=== PATIENT | male | born 1990 | race American Indian/Alaskan Native ===

== ENCOUNTER 2017-11-16 07:24 | Emergency (ER) | payer SELFPAY ==
[2017-11-16] MEDS ORDERED: LORazepam 2 MG/ML SDV IVPUSH ONE (07:33)
[2017-11-16] MEDS ORDERED: Famotidine 20 MG/2 ML SDV IVPUSH ONE (07:33)
[2017-11-16] MEDS ORDERED: Ondansetron 4 MG/2 ML SDV IVPUSH ONE (07:33)
[2017-11-16] MEDS ORDERED: Sodium Chloride 0.9% 10 ML Syringe FLUSH PRN (07:33)
--- NOTE | 2017-11-16 07:44 | EDM.PDOC ---
ED HPI GENERAL MEDICAL PROBLEM - General Chief Complaint: Gastrointestinal Problem Stated Complaint: [facility] Time Seen by Provider: 11/16/17 07:32 Source of Information: Reports: Patient, RN Notes Reviewed - History of Present Illness INITIAL COMMENTS - FREE TEXT/NARRATIVE: 27 year old male brought in by Ambulance. Awakened with upper abd and cramps, nausea, vomiting. Than started feeling short of breath, started hyperventilating, arrives with hands numb, tingling, spasms, anterior chest discomfort, continued nausea and vomiting. No diarrhea. Not diabetic. Was feeling fine yesterday and last evening. Left Chest Pain Score (Numeric/FACES): 7 - Related Data Allergies Allergy/AdvReac Type Severity Reaction Status Date / Time No Known Allergies Allergy Verified 11/16/17 07:47 Home Meds: Home Meds . [No Known Home Meds] 11/16/17 [History] ED ROS GENERAL - Review of Systems Review Of Systems: See Below Constitutional: Reports: Diaphoresis. Denies: Fever, Chills HEENT: Denies: Throat Pain Respiratory: Reports: Shortness of Breath, Pleuritic Chest Pain. Denies: Cough Cardiovascular: Reports: Chest Pain GI/Abdominal: Reports: Abdominal Pain, Nausea, Vomiting. Denies: Diarrhea Skin: Denies: Rash Neurological: Reports: Dizziness, Weakness ED EXAM, GI/ABD - Physical Exam Exam: See Below General Appearance: Alert, Anxious, Severe Distress (hyperventilating) Eyes: Bilateral: Normal Appearance Nose: Normal Inspection Throat/Mouth: Normal Inspection, Normal Oropharynx Neck: Supple, Full Range of Motion Respiratory/Chest: No Respiratory Distress, Lungs Clear Cardiovascular: Tachycardia GI/Abdominal Exam: Tender (upper mid abd). No: Guarding, Rebound Extremities: Normal Inspection, Normal Range of Motion. No: Pedal Edema Neurological: Alert, Oriented, No Motor/Sensory Deficits Skin Exam: Warm, Dry, Normal Color Course - Vital Signs Last Recorded V/S: Last Vital Signs Temp 97.2 F 11/16/17 07:32 Pulse 126 H 11/16/17 07:32 Resp 30 H 11/16/17 07:32 BP 148/103 H 11/16/17 07:32 Pulse Ox 98 11/16/17 07:32 - Orders/Labs/Meds Orders: Active Orders 24 hr Category Date Time Status Peripheral IV Care [RC] . DIRECTED Care 11/16/17 07:33 Active Peripheral IV Insertion Adult [OM.PC] Stat Oth 11/16/17 07:32 Ordered Labs: Laboratory Tests 11/16/17 11/16/17 Range/Units 07:32 08:00 WBC 10.65 H (4.23-9.07) K/mm3 RBC 5.08 (4.63-6.08) M/mm3 Hgb 14.1 (13.7-17.5) gm/L Hct 42.4 (40.1-51.0) % MCV 83.5 (79.0-92.2) fl MCH 27.8 (25.7-32.2) pg MCHC 33.3 (32.2-35.5) g/dl RDW Std Deviation 43.5 (35.1-43.9) fL Plt Count 360 H (163-337) K/mm3 MPV 9.8 (9.4-12.3) fl Neut % (Auto) 79.6 H (34.0-67.9) % Lymph % (Auto) 10.3 L (21.8-53.1) % [place] % (Auto) 9.5 (5.3-12.2) % Eos % (Auto) 0.2 L (0.8-7.0) Baso % (Auto) 0.3 (0.1-1.2) % Neut # (Auto) 8.48 H (1.78-5.38) K/mm3 Lymph # (Auto) 1.10 L (1.32-3.57) K/mm3 [place] # (Auto) 1.01 H (0.30-0.82) K/mm3 Eos # (Auto) 0.02 L (0.04-0.54) K/mm3 Baso # (Auto) 0.03 (0.01-0.08) K/mm3 Sodium 142 (136-145) mEq/L Potassium 3.0 L (3.5-5.1) mEq/L Chloride 103 (98-107) mEq/L Carbon Dioxide 19 L (21-32) mEq/L Anion Gap 23.0 H (5-15) BUN 8 (7-18) mg/dL Creatinine 1.1 (0.7-1.3) mg/dL Est Cr Clr Drug Dosing 119.36 mL/min Estimated GFR (MDRD) > 60 (>60) mL/min BUN/Creatinine Ratio 7.3 L (14-18) Glucose 100 (74-106) mg/dL Calcium 9.0 (8.5-10.1) mg/dL Total Bilirubin 0.9 (0.2-1.0) mg/dL AST 34 (15-37) U/L ALT 42 (16-63) U/L Alkaline Phosphatase 102 (46-116) U/L Total Protein 8.0 (6.4-8.2) g/dl Albumin 3.7 (3.4-5.0) g/dl Globulin 4.3 gm/dL Albumin/Globulin Ratio 0.9 L (1-2) Lipase 148 (73-393) U/L Ethyl Alcohol 0.00 (0.00) gm% Meds: Medications Discontinued Medications Generic Name Dose Route Start Last Admin Trade Name Freq PRN Reason Stop Dose Admin Famotidine 20 mg 11/16/17 07:33 11/16/17 07:43 Pepcid IVPUSH 11/16/17 07:34 20 mg ONETIME ONE Administration Sodium Chloride 1,000 mls @ 999 mls/hr 11/16/17 07:45 11/16/17 07:40 Normal Saline IV 999 mls/hr ONETIME YOLANDE Administration Potassium Chloride 10 meq/ 100 mls @ 50 mls/hr 11/16/17 09:45 11/16/17 09:54 Premix IV 11/16/17 11:44 50 mls/hr ASDIRECTED ONE Administration Sodium Chloride 1,000 mls @ 999 mls/hr 11/16/17 09:45 11/16/17 09:53 Normal Saline IV 999 mls/hr ONETIME YOLANDE Administration Lorazepam 1 mg 11/16/17 07:33 11/16/17 07:40 Ativan IVPUSH 11/16/17 07:34 1 mg ONETIME ONE Administration Ondansetron HCl 4 mg 11/16/17 07:33 11/16/17 07:35 Zofran IVPUSH 11/16/17 07:34 4 mg ONETIME ONE Administration Sodium Chloride 10 ml 11/16/17 07:33 11/16/17 07:56 Saline Flush FLUSH 10 ml ASDIRECTED PRN Administration Keep Vein Open - Re-Assessments/Exams Free Text/Narrative Re-Assessment/Exam: 11/16/17 09:56 Feeling much better after initial IV fluid, Zofran and Ativan IV. Labs have come back showing that he was quite dehydrated, potassium 3.0. 10 mEq potassium IV and one further liter of fluid. The paresthesias and spasms of his hands and fingers or gone. Anterior chest discomfort and spasms also are gone. 11/16/17 12:14. Feeling better, no further vomiting. Discharge instructions as documented Departure - Departure Time of Disposition: 09:56 Disposition: Home, Self-Care 01 Condition: Fair Clinical Impression: Hyperventilation, Hypokalemia, Dehydration Vomiting Qualifiers: Vomiting type: unspecified Vomiting Intractability: non-intractable Nausea presence: with nausea Qualified Code(s): R11.2 - Nausea with vomiting, unspecified - Discharge Information Instructions: Nausea, Adult, Hyperventilation Referrals: PCP,None [Primary Care Provider] - Forms: ED Department Discharge Additional Instructions: Rest, clear liquids until this evening, then very careful bland diet as tolerated, your potassium was somewhat low here today, try eat one or 2 bananas daily for the next week or so, try eat plenty of fruit and vegetables. Potatoes also are good source of potassium. Follow up clinic as needed, return to ED as needed. - My Orders Last 24 Hours: My Active Orders 11/16/17 07:32 Peripheral IV Insertion Adult [OM.PC] Stat 11/16/17 07:33 Peripheral IV Care [RC] . DIRECTED - Assessment/Plan Last 24 Hours: My Active Orders 11/16/17 07:32 Peripheral IV Insertion Adult [OM.PC] Stat 11/16/17 07:33 Peripheral IV Care [RC] . DIRECTED
[2017-11-16] MEDS ORDERED: Sodium Chloride 0.9% 1,000 ML IV SCH ×2 (07:45→09:45)
[2017-11-16] MEDS ORDERED: Potassium Chloride 10 MEQ in Premix Bag 1 BAG IV ONE (09:45)
== END 2017-11-16 12:25 | disposition home or self-care (01) ==
LOC: JD.ED 07:24
DX: E87.6 Hypokalemia (principal); R06.4 Hyperventilation; E86.0 Dehydration; R11.2 Nausea with vomiting, unspecified
CPT/HCPCS: 36415; 80053; 83690; 85025; 96361; 96365; 96366; 96375; 99284; G0480; J2060; J2405; J3480; J7040; J7050